=== PATIENT | female | born 1980 | race Caucasian/White ===

== ENCOUNTER 2017-04-02 10:34 | Emergency (ER) | payer OTHER ==
[~2017-04-02 10:34] MED LIST: BACTRIM DS TABL1 TA1; CIPRO PO; HYDROXYZINE HCL10 MG PO; KEFLEX500 M1 PO; KETOPROFEN PO; PHENERGAN25 M1 PO; PREDNISONE PO; ULTRAM PO; VICODIN 5/500 T1 TAB PO; VOLTAREN75 MG PO; ZITHROMAX PO; ZOFRANODT PO; ZYRTEC5 M2 PO
== END 2017-04-02 11:32 | disposition home or self-care (01) ==
LOC: SED 10:34
DX: M79.671 Pain in right foot (principal); K57.92 Diverticulitis of intestine, part unspecified, without perforation or abscess without bleeding; F17.210 Nicotine dependence, cigarettes, uncomplicated; Z98.890 Other specified postprocedural states
CPT/HCPCS: 29530; 99283